=== PATIENT | female | born 2000 | race Hispanic/Latino ===

== ENCOUNTER 2024-09-27 16:36 | Emergency (ER) | payer BC ==
[~2024-09-27] VITALS: Ht 160 cm; Wt 64.4 kg
[2024-09-27 18:35] VITALS: TEMP 98.9
[2024-09-27 19:06] LABS: BASOPHILS % 0.4 % (0.0-1.0); EOSINOPHILS % 0.5 % (0.0-6.0); LYMPHOCYTES % 25.1 % (18.0-39.1); MONOCYTES % 6.2 % (4.4-11.3); NEUTROPHILS % 67.5 % (38.7-80.0); RED CELL DISTRIBUTION WIDTH 14.6 % (11.7-14.4)
[2024-09-27 19:12] LABS: LEUKOCYTE ESTERASE ,URINE NEGATIVE (NEGATIVE); PROTEIN,URINE DIPSTICK NEGATIVE (NEGATIVE); URINE UROBILINOGEN 0.2 mg/dL (0.2 - 1)
[2024-09-27 19:25] LABS: EST GLOMERULAR FILTRATION RATE 128.0 ML/MIN (>=60)
[2024-09-27 19:26] LABS: EPITHELIAL CELLS,URINE FEW /LPF
[2024-09-27] MEDS ORDERED: IOPAMIDOL 370 MG/ML 100 ML INFUS..BTL INJ ONE (20:07)
[2024-09-27] MEDS: KETOROLAC TROMETHAMINE 30 MG/ML VIAL IV STA (20:41)
[2024-09-27 21:43] VITALS: PULSE 68; RESP 16; O2SAT 98
== END 2024-09-27 21:45 | disposition home or self-care (01) ==
LOC: ER 19:24
DX: R10.31 Right lower quadrant pain (principal)
CPT/HCPCS: 36415; 74177; 80053; 81001; 84702; 85025; 99284; J1885; Q9967